=== PATIENT | male | born 1990 | race Caucasian/White ===

== ENCOUNTER → 2020-10-17 | Day surgery (SDC) | payer OTHER ==
[~2020-10-17] MED LIST: ACETAMINOPHEN500 M1 PO; BUPRENORPHIN-N1 EACH SL; COLACE100 MG PO; MOTRIN600 MG PO; OXY-IR 5MG5 MG PO; WELLBUTRIN75 MG PO
[2020-10-17 10:10] LABS: ALT 60 U/L (16-63); AST 30 U/L (15-37)
== END | disposition home or self-care (01) ==
LOC: FAS 08:50
PROVIDERS: Anesthesiology
DX: K42.9 Umbilical hernia without obstruction or gangrene (principal); Z20.822 Contact with and (suspected) exposure to COVID-19; Z87.19 Personal history of other diseases of the digestive system; Z86.19 Personal history of other infectious and parasitic diseases; Z82.49 Family history of ischemic heart disease and other diseases of the circulatory system; Z87.891 Personal history of nicotine dependence; F43.10 Post-traumatic stress disorder, unspecified
CPT/HCPCS: 36415; 84450; 84460; J0690; J1644; J1885; J2250; J2405; J2704; J3010; J7120